=== PATIENT | female | born 1990 | race Caucasian/White ===

== ENCOUNTER → 2016-03-31 | Outpatient (REF) | payer BC | LOC: M LAB REF 10:15 | PROVIDERS: ATTEND Physician Assistant | DX: N39.0 Urinary tract infection, site not specified (principal) ==

== ENCOUNTER → 2017-10-16 | Outpatient (CLI) | payer BC ==
[2017-10-20 11:13] LABS: HEPATITIS B SURFACE ANTIGEN NEGATIVE (NEGATIVE)
[2017-10-20 11:41] LABS: HEPATITIS C VIRUS ABY INDEX 0.3 INDEX (<0.8)
[2017-10-22 18:25] LABS: HIV 1&2 SCREEN CENTAUR NEGATIVE (NEGATIVE)
== END ==
LOC: M WUC 15:53
DX: Z11.3 Encounter for screening for infections with a predominantly sexual mode of transmission (principal)
CPT/HCPCS: 87340

== ENCOUNTER → 2020-07-24 | Outpatient (REF) | payer BC ==
[2020-07-25 12:21] LABS: FREE T3 3.4 PG/ML (2.2-4.0)
[2020-07-25 13:04] LABS: THYROGLOBULIN ANTIBODY < 15.0 U/ML (<60.0); THYROID PEROXIDASE ANTIBODY < 28.0 U/ML (<60.0)
== END ==
LOC: M LAB REF 11:18
PROVIDERS: ATTEND Nurse Practitioner Adult Health
DX: E03.9 Hypothyroidism, unspecified (principal)